=== PATIENT | male | born 1985 | race Caucasian/White ===

== ENCOUNTER 2023-02-27 12:52 | Emergency (ER) | payer BC, SELFPAY ==
--- NOTE | ~2023-02-27 | US_ITS ---
EXAMINATION: US SCROTUM CLINICAL INFORMATION: Testicular pain and swelling Status post trauma. COMPARISON: None available. TECHNIQUE: A sonogram of the scrotum was performed assessing aguila-scale appearance and color Doppler flow. Spectral Doppler analysis of the arterial and venous flow were performed in the testes bilaterally. FINDINGS: RIGHT: Right testicle measures 4.9 x 2.2 x 3.1 cm, volume 17.2 mL. No focal testicular parenchymal lesions are visualized. Spectral Doppler analysis of the arterial and venous flow is normal in the right testis. Right epididymal head is normal in size. No right hydrocele or varicocele is seen. Right epididymal Doppler flow is normal. LEFT: Left testicle measures 4.6 x 2.7 x 2.7 cm, volume 18.0 mL. No worrisome focal testicular parenchymal lesions are visualized. 0.1 x 0.1 cm calcification is seen in the anterior left testicle. Spectral Doppler analysis of the arterial and venous flow is normal in the left testis. Left epididymal head is normal in size. 0.6 x 0.6 x 0.7 cm simple cyst is seen in the left epididymal head. No left hydrocele or varicocele is seen. Left epididymal Doppler flow is normal. There is moderate bilateral scrotal skin thickening, on the right measuring 1.4 cm and on the left 1.0 cm. Peroneal edema with vascularity is noted. US/US scrotum IMPRESSION: 1. Normal testes. 2. 0.7 cm simple cyst in the left epididymal head. 3. Moderate bilateral scrotal skin thickening and perineal edema.
--- NOTE | ~2023-02-27 | US_ITS ---
EXAMINATION: US SCROTUM CLINICAL INFORMATION: Testicular pain and swelling Status post trauma. COMPARISON: None available. TECHNIQUE: A sonogram of the scrotum was performed assessing aguila-scale appearance and color Doppler flow. Spectral Doppler analysis of the arterial and venous flow were performed in the testes bilaterally. FINDINGS: RIGHT: Right testicle measures 4.9 x 2.2 x 3.1 cm, volume 17.2 mL. No focal testicular parenchymal lesions are visualized. Spectral Doppler analysis of the arterial and venous flow is normal in the right testis. Right epididymal head is normal in size. No right hydrocele or varicocele is seen. Right epididymal Doppler flow is normal. LEFT: Left testicle measures 4.6 x 2.7 x 2.7 cm, volume 18.0 mL. No worrisome focal testicular parenchymal lesions are visualized. 0.1 x 0.1 cm calcification is seen in the anterior left testicle. Spectral Doppler analysis of the arterial and venous flow is normal in the left testis. Left epididymal head is normal in size. 0.6 x 0.6 x 0.7 cm simple cyst is seen in the left epididymal head. No left hydrocele or varicocele is seen. Left epididymal Doppler flow is normal. There is moderate bilateral scrotal skin thickening, on the right measuring 1.4 cm and on the left 1.0 cm. Peroneal edema with vascularity is noted. US/US scrotum doppler IMPRESSION: 1. Normal testes. 2. 0.7 cm simple cyst in the left epididymal head. 3. Moderate bilateral scrotal skin thickening and perineal edema.
--- NOTE | 2023-02-27 14:27 | ED.GENADULT ---
HPI - General Adult General Chief complaint: Urogenital-Male Stated complaint: swelling in testicles Time Seen by Provider: 02/27/23 22:43 Source: patient Mode of arrival: ambulatory Limitations: no limitations History of Present Illness HPI narrative: Patient had a rough sex 2 days ago wearing the scrotal ring which came off while having the sexual activity complaining of pain in the scrotum area with slight discoloration no penile discharge no hematuria pain is constant does not get worse on standing Related Data Allergies Allergy/AdvReac Type Severity Reaction Status Date / Time Sulfa (Sulfonamide Allergy Hives Verified 02/27/23 14:32 Antibiotics) Review of Systems Review of Systems: Yes all other systems are reviewed and are negative Physical Exam ED Vital Signs: Vital Signs - 24 hr 02/27/23 14:28 Temperature 98.3 F Pulse Rate 76 Respiratory Rate 16 Blood Pressure 156/84 H Pulse Oximetry 98 Oxygen Delivery Method Room Air BMI result Body Mass Index 39.2 Appearance: Alert. Oriented X3. No acute distress. CVS: Normal heart rate and rhythm. Pulses normal. Respiratory: No respiratory distress. Equal air entry bilateral, Abdomen: Soft and nontender. Bowel sounds are present, no mass palpable, no CVA tenderness : Normal alignment of the testicle nontender thickening of the scrotal skin no signs of infection Skin: Skin warm and dry. Normal skin color. Normal skin turgor. Neuro: Oriented X 3. Course Course Course Narrative: This is an RME: Additional HPI, ROS, PE not included below will be deferred to primary provider. This is a 21-[id number]-male, with no known medical problems, presenting to the emergency department with complaints of testicular soreness and swelling. Reports that during intercourse was wearing ring around scrotum and ring popped out on Monday. Plan: UA, scrotal US, labs ordered. Medical Decision Making Differential Diagnosis Differential Diagnoses: The differential diagnosis associated with the presentation includes Testicular torsion/scrotal ecchymosis/epididymitis/cellulitis Lab Data [facility] Lab Attestation statement: I reviewed the patient's lab results. 02/27/23 14:44 02/27/23 14:44 Labs: Lab Results 02/27/23 02/27/23 Range/Units 14:44 18:18 WBC 8.1 (4.8-10.8) X10*3/uL RBC 4.71 (4.60-5.80) X10*6/uL Hgb 14.8 (14.0-18.0) g/dl Hct 43.7 (42.0-52.0) % MCV 92.8 (80.0-98.0) fL MCH 31.4 (27.0-33.0) pg MCHC 33.9 (31.0-36.0) g/dl RDW 12.5 (11.0-16.0) % Plt Count 232 (160-400) X10*3/uL MPV 9.3 L (9.4-12.4) fL Immature Gran % (Auto) 0.4 (0.0-0.4) % Neut % (Auto) 76.2 H (45-73) % Lymph % (Auto) 17.9 L (20-40) % [place] % (Auto) 4.7 (2-11) % Eos % (Auto) 0.4 (0-4) % Baso % (Auto) 0.4 (0-2) % Lymph # (Auto) 1.5 (1.2-4.9) X10*3/uL [place] # (Auto) 0.4 (0.1-1.2) X10*3/uL Eos # (Auto) 0.0 (0.0-0.4) X10*3/uL Baso # (Auto) 0.0 (0.0-0.2) X10*3/uL Abs Immat Gran (auto) 0.03 (0.00-0.03) X10*3/uL Absolute Neuts (auto) 6.2 (2.0-8.3) x10*3/uL Absolute Nucleated RBC 0.000 (0.0-0.012) X10*3/uL Nucleated RBC % (auto) 0.0 (0.0-0.2) /100WBC Sodium 141 (135-145) mmol/L Potassium 4.5 (3.3-5.1) mmol/L Chloride 107 (96-108) mmol/L Carbon Dioxide 25 (22-29) mmol/L Anion Gap 14 (12-20) BUN 12 (9-16) mg/dL Creatinine 0.86 (0.5-1.4) mg/dL Estim Creat Clear Calc 147.5 Estimated GFR > 60 Random Glucose 121 H (60-115) mg/dL Calcium 9.5 (8.4-10.2) mg/dL Total Bilirubin 0.4 (0.0-1.0) mg/dL Direct Bilirubin 0.1 (0.0-0.5) mg/dL AST 27 (5-37) U/L ALT 39 (0-40) U/L Alkaline Phosphatase 49 (39-117) U/L Total Protein 7.5 (6.5-8.0) g/dL Albumin 4.5 (3.5-5.0) g/dL Urine Color Yellow Urine Appearance Clear Urine pH 8.5 (5.0-9.0) Ur Specific [place] 1.010 (1.005-1.025) Urine Protein Negative (Neg-Trace) mg/dL Urine Glucose (UA) Negative (Negative) mg/dL Urine Ketones Negative (Negative) mg/dL Urine Blood Negative (Negative) Urine Nitrite Negative (Negative) Ur Leukocyte Esterase Negative (Negative) Independent Interpretation I performed an independent interpretation of an: Ultrasound Radiology Impression Discussion of test interpretation with radiology: I have reviewed the radiologist's reading. Radiologist Impression: US/US scrotum IMPRESSION: 1. Normal testes. 2. 0.7 cm simple cyst in the left epididymal head. 3. Moderate bilateral scrotal skin thickening and perineal edema. Discharge Plan Discharge Clinical Impression: Bruise of scrotum Patient Disposition: Home, Self-Care Instructions: Ecchymosis (ED), Scrotal Pain (ED) Additional Instructions: No internal damage seen in the ultrasound Take Tylenol/Motrin for pain
[2023-02-27 14:28] VITALS: BP 156/84; PULSE 76; RESP 16; TEMP 36.8; O2SAT 98; BMI 39.2
[2023-02-27 14:49] LABS: MANUAL DIFF FLAG NO
[2023-02-27 14:56] LABS: Basophils Percent Auto 0.4 % (0-2); Eosinophils Percent Auto 0.4 % (0-4); Hematocrit 43.7 % (42.0-52.0); Hemoglobin 14.8 g/dl (14.0-18.0); Imm Gran Abs Auto 0.03 X10*3/uL (0.00-0.03); Imm Gran Pct Auto 0.4 % (0.0-0.4); Lymphocytes Absolute Auto 1.5 X10*3/uL (1.2-4.9); Lymphocytes Percent Auto 17.9 % (20-40); Mean Corpuscular HGB Conc 33.9 g/dl (31.0-36.0); Mean Corpuscular Hemoglobin 31.4 pg (27.0-33.0); Mean Corpuscular Volume 92.8 fL (80.0-98.0); Mean Platelet Volume 9.3 fL (9.4-12.4); Monocytes Absolute Auto 0.4 X10*3/uL (0.1-1.2); Monocytes Percent Auto 4.7 % (2-11); Neutrophils Absolute Auto 6.2 x10*3/uL (2.0-8.3); Neutrophils Percent Auto 76.2 % (45-73); Platelet Count 232 X10*3/uL (160-400); Red Blood Count 4.71 X10*6/uL (4.60-5.80); Red Cell Distribution Width 12.5 % (11.0-16.0); White Blood Count 8.1 X10*3/uL (4.8-10.8)
[2023-02-27 15:08] LABS: Alanine Aminotransferase 39 U/L (0-40); Albumin Level 4.5 g/dL (3.5-5.0); Alkaline Phosphatase 49 U/L (39-117); Anion Gap 14 (12-20); Aspartate Amino Transferase 27 U/L (5-37); Bilirubin Direct 0.1 mg/dL (0.0-0.5); Bilirubin Total 0.4 mg/dL (0.0-1.0); Blood Urea Nitrogen 12 mg/dL (9-16); Calcium 9.5 mg/dL (8.4-10.2); Carbon Dioxide 25 mmol/L (22-29); Chloride 107 mmol/L (96-108); Creatinine Clr Calc Pharmacy 147.5; Estimated Glomerular Filt Rate > 60; Glucose Random 121 mg/dL (60-115); Potassium 4.5 mmol/L (3.3-5.1); Sodium 141 mmol/L (135-145); Total Protein 7.5 g/dL (6.5-8.0)
[2023-02-27 18:24] LABS: Appearance Urine Clear; Color Urine Yellow; Glucose Urine UA Negative (Negative); Leukocyte Esterase Urine Negative (Negative); Nitrite Urine Negative (Negative); PH 8.5 (5.0-9.0); Urine Blood Negative (Negative); Urine Ketones Negative (Negative); Urine Protein Negative (Neg-Trace)
[2023-02-27 23:01] VITALS: BP 147/112; PULSE 78; RESP 18; TEMP 36.8; O2SAT 96
== END 2023-02-27 23:06 | disposition home or self-care (01) ==
LOC: HO.ED 23:03
PROVIDERS: Physician Assistant Medical; Emergency Provider Internal Medicine
DX: S30.22XA Contusion of scrotum and testes, initial encounter (principal); R10.2 Pelvic and perineal pain; N50.89 Other specified disorders of the male genital organs; Y33.XXXA Other specified events, undetermined intent, initial encounter; Y93.9 Activity, unspecified; Y92.9 Unspecified place or not applicable; Y99.9 Unspecified external cause status
CPT/HCPCS: 36415; 76870; 80048; 80076; 81003; 85025; 93975; 99283; 99284